=== PATIENT | male | born 1940 | race Caucasian/White ===

== ENCOUNTER 2016-10-13 17:22 | Emergency (ER) | payer OTHER ==
[2016-10-13 17:29] VITALS: TEMP 98.1; O2SAT 96
[2016-10-13] MEDS ORDERED: traMADol 50 MG TAB PO ONE (17:55)
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
--- NOTE | 2016-10-13 18:09 | CPEKG ---
Heart Rate: 55 RR Interval: 1091 P-R Interval: 320 QRSD Interval: 98 QT Interval: 428 QTC Interval: 410 P Oxford: 18 QRS Oxford: -16 T Wave Oxford: -2 EKG Severity - ABNORMAL ECG - EKG Impression: SINUS RHYTHM EKG Impression: FIRST DEGREE AV BLOCK EKG Impression: BORDERLINE LEFT AXIS DEVIATION Electronically Signed By: Le Edmonds 13-Oct-2016 22:31:01
[2016-10-13 18:46] VITALS: BP 169/92; PULSE 56; RESP 16
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
== END 2016-10-13 19:45 | disposition home or self-care (01) ==
DX: S06.0X0A Concussion without loss of consciousness, initial encounter (principal); S16.1XXA Strain of muscle, fascia and tendon at neck level, initial encounter; S39.012A Strain of muscle, fascia and tendon of lower back, initial encounter; S59.902A Unspecified injury of left elbow, initial encounter; S69.92XA Unspecified injury of left wrist, hand and finger(s), initial encounter; I10 Essential (primary) hypertension; Z79.82 Long term (current) use of aspirin; V46.5XXA Car driver injured in collision with other nonmotor vehicle in traffic accident, initial encounter; Y92.410 Unspecified street and highway as the place of occurrence of the external cause; Y99.8 Other external cause status; Y93.89 Activity, other specified

== ENCOUNTER → 2017-02-25 | Outpatient (CLI) | payer OTHER | LOC: BHFA 14:00 | PROVIDERS: ATTEND Internal Medicine Cardiovascular Disease | DX: I47.1 Supraventricular tachycardia (principal); I10 Essential (primary) hypertension ==

== ENCOUNTER → 2017-03-20 | Outpatient (CLI) | payer OTHER | LOC: BHFA 11:00 | PROVIDERS: ATTEND Internal Medicine Cardiovascular Disease | DX: I47.1 Supraventricular tachycardia (principal) ==

== ENCOUNTER 2017-08-14 08:58 | Inpatient (IN) | payer OTHER ==
[~2017-08-14 08:58] MED LIST: ROPIVACAINE 0.2% 80 MG, EPINEPHrine 0.2 MG, KETOROLAC TROMETHAMINE 30 MG in SYRINGE 0 ML IU ONE; TRANEXAMIC ACID 3,000 MG in NS 50 ML IRR ONE; TRANEXAMIC ACID 3,000 MG/50 ML BAG IRR ONE; VANCOMYCIN 1 GM VIAL ONE
[2017-08-14] MEDS ORDERED: ceFAZolin 2 GM/SWFI 2 GM/20 ML SYR IVP ONE (09:32)
[2017-08-14] MEDS ORDERED: FAMOTIDINE 20 MG TAB PO ONE (09:32)
[2017-08-14] MEDS ORDERED: DEXAMETHASONE 4 MG/ML VIAL IVP ONE (09:32)
[2017-08-14] MEDS ORDERED: ACETAMINOPHEN 325 MG TAB PO ONE (09:32)
[2017-08-14] MEDS ORDERED: LIDOCAINE 1% 2 ML INJ ID PRN (09:43)
[2017-08-14] MEDS ORDERED: LR 1,000 ML IV ONE (09:43)
--- NOTE | 2017-08-14 10:19 | PDHPUP ---
History & Physical Update H&P update statement: This history and physical update is based on an assessment of the patient which was completed after admission or registration (within 24 hours), but prior to the surgery/procedure. H&P update: H&P reviewed & patient examined, no change in patient's condition since H&P completed
[2017-08-14] MEDS ORDERED: BUPIVACAINE 0.5% 30 ML SDV ONE (10:56)
[2017-08-14] MEDS ORDERED: PROPOFOL/EMULSION 500 MG/50 ML BOTTLE IV ONE ×2 (10:57→11:50)
--- NOTE | 2017-08-14 11:25 | PDANEPAE ---
ANE History of Present Illness right knee OA ANE Past Medical History - Cardiovascular History Hx Hypertension: Yes Hx Arrhythmias: Yes Hx Chest Pain: No Hx Coronary Artery / Peripheral Vascular Disease: Yes Hx CHF / Valvular Disease: No Hx Palpitations: Yes Cardiovascular History Comment: htn. psvt. occ palpitations. cad. goes to [facility] - Pulmonary History Hx COPD: No Hx Asthma/Reactive Airway Disease: No Hx Recent Upper Respiratory Infection: No Hx Oxygen in Use at Home: No Hx Sleep Apnea: No Sleep Apnea Screening Result - Last Documented: Positive Pulmonary History Comment: traci triggers - Neurologic History Hx Cerebrovascular Accident: No Hx Seizures: No Hx Dementia: No - Endocrine History Hx Diabetes: No Obesity: no - Renal History Hx Renal Disorders: No - Liver History Hx Hepatic Disorders: No - Neurological & Psychiatric Hx Hx Neurological and Psychiatric Disorders: No - Cancer History Hx Cancer: No - Congenital Disorder History Hx Congenital Disorders: No - GI History GERD: no Hx Gastrointestinal Disorders: No - Other Health History Other Health History: wear reading glasses - Chronic Pain History Chronic Pain: Yes (right knee) - Surgical History Prior Surgeries: right knee scope ANE Review of Systems Review of Systems: - Exercise capacity METS (RN): 4 METS ANE Patient History - Allergies Allergies/Adverse Reactions: No Known Allergies Allergy (Verified 07/08/17 12:57) - Home Medications Home medications: home medication list seen and reviewed Home Medications: Flecainide Acetate [Tambocor] 100 mg PO BID 10/13/16 [Last Taken 08/14/17] Ibuprofen [Motrin (*)] 200 mg PO DAILY PRN 07/01/17 [Last Taken 08/04/17] Lisinopril [Zestril 10 mg (*)] 10 mg PO DAILY 07/01/17 [Last Taken 08/14/17] Multivitamins [Multivitamin (*)] 1 each PO DAILY 07/01/17 [Last Taken 07/31/17] - NPO status NPO Since - Liquids (Date): 08/14/17 NPO Since - Liquids (Time): 07:30 NPO Since - Solids (Date): 08/13/17 NPO Since - Solids (Time): 19:30 - Anes Hx Anes Hx: no prior problems - Smoking Hx Smoking Status: Never smoked - Family Anes Hx Family Hx Anesthesia Complications: none ANE Labs/Vital Signs - Vital Signs Blood Pressure: 160/91 Heart Rate: 64 Respiratory Rate: 18 O2 Sat (%): 94 Height: 182.88 cm Weight: 90.718 kg ANE Physical Exam - Airway Neck exam: FROM Mallampati Score: Class 1 Mouth exam: normal dental/mouth exam - Pulmonary Pulmonary: no respiratory distress - Cardiovascular Cardiovascular: regular rate and rhythym - ASA Status ASA Status: III ANE Anesthesia Plan Anesthesia Plan: spinal Regional Anesthesia: single shot NB, adductor canal FNB Urgent/Emergent Case: Gerard joseph completed preop but documented later for safe timely pt care
--- NOTE | 2017-08-14 11:25 | POSTANESTH ---
Post Anesthetic Evaluation Cardiovascular Status: Normal, Stable Respiratory Status: Normal, Stable Level of Consciousness/Mental Status: Can Participate in Eval Pain Control: Adequate, Prn Tx Ordered Nausea/Vomiting Control: Adequate, Prn Tx Ordered Complications Possibly Related to Anesthesia: None Noted
[2017-08-14] MEDS ORDERED: LIDOCAINE 2% 5 ML SDV ONE (11:50)
[2017-08-14] MEDS ORDERED: CYCLOBENZAPRINE 10 MG TAB PO PRN (12:35)
[2017-08-14] MEDS ORDERED: ONDANSETRON DISINTEGRATING 4 MG TAB PO PRN (12:35)
[2017-08-14] MEDS ORDERED: LACTULOSE 20 GM/30 ML UDCUP PO PRN (12:35)
[2017-08-14] MEDS ORDERED: ONDANSETRON 4 MG/2 ML VIAL IVP PRN ×2 (12:35→13:12)
[2017-08-14] MEDS ORDERED: METOCLOPRAMIDE 10 MG/2 ML VIAL IVP PRN (12:35)
[2017-08-14] MEDS ORDERED: MAGNESIUM HYDROXIDE 30 ML UDCUP PO PRN (12:35)
[2017-08-14] MEDS ORDERED: HYDROmorphONE/DILAUDID 2 MG TAB PO PRN (12:35)
[2017-08-14] MEDS ORDERED: BISACODYL 10 MG SUPP PR PRN (12:35)
[2017-08-14] MEDS ORDERED: diphenhydrAMINE 25 MG CAP PO PRN (12:35)
[2017-08-14] MEDS ORDERED: PROMETHAZINE HCL 25 MG/ML INJ IVP PRN (12:35)
[2017-08-14] MEDS ORDERED: TEMAZEPAM 15 MG CAP PO PRN (12:35)
[2017-08-14] MEDS ORDERED: DIPHENOXYLATE/ATROPINE LOMOTIL 1 TAB PO PRN (12:35)
[2017-08-14] MEDS ORDERED: PROMETHAZINE HCL 25 MG SUPPR PR PRN (12:35)
[2017-08-14] MEDS ORDERED: POLYETHYLENE GLYCOL 3350 17 GM PKT PO PRN (12:35)
--- NOTE | 2017-08-14 12:35 | POSTOPPROG ---
Post Op Note Date of Operation: 08/14/17 Surgeon: Ash Miller [employer] Dean: hemanth miller Anesthesiologist: dr. bender Anesthesia: Spinal, Other (Specify) (adductor canal block) Pre-op Diagnosis: right knee OA Post-op Diagnosis: same Indication: right knee pain due to OA that failed conservative measures Procedure: R TKA Findings: severe kneeOA Inf/Abcess present in the surg proc area at time of surgery?: No EBL: 50-100
[2017-08-14] MEDS ORDERED: ACETAMINOPHEN 325 MG TAB ONE (13:11)
[2017-08-14] MEDS ORDERED: ALBUTEROL 3 ML DEYVIAL IH PRN (13:12)
[2017-08-14] MEDS ORDERED: HYDROmorphONE/DILAUDID 1 MG/ML INJ IVP PRN (13:12)
[2017-08-14] MEDS ORDERED: OXYCODONE/APAP 5/325 TAB PO PRN (13:12)
[2017-08-14] MEDS ORDERED: fentaNYL 100 MCG/2 ML INJ IVP PRN (13:12)
[2017-08-14] MEDS ORDERED: ACETAMINOPHEN 500 MG TAB PO PRN (13:12)
[2017-08-14] MEDS ORDERED: HYDROCODONE/APAP 5/325 TAB PO PRN (13:12)
[2017-08-14] MEDS ORDERED: NALOXONE HCL 0.4 MG/ML INJ IVP PRN (13:12)
[2017-08-14] MEDS ORDERED: LR 500 ML IV PRN (13:12)
[2017-08-14] MEDS: LR 1,000 ML IV SCH (15:45)
[2017-08-14] MEDS: ceFAZolin 2 GM/DEXTROSE 100 ML IV SCH ×3 (16:14→18:08)
[2017-08-14] MEDS: ACETAMINOPHEN 325 MG TAB PO SCH (18:08)
[2017-08-14] MEDS ORDERED: ASPIRIN 325 MG TAB PO SCH (21:00)
[2017-08-14] MEDS: FAMOTIDINE 20 MG TAB PO SCH (21:17)
[2017-08-14] MEDS: ASPIRIN EC 81 MG TAB PO SCH (21:17)
[2017-08-14] MEDS: FLECAINIDE ACETATE 100 MG TAB PO SCH (21:17)
[2017-08-14] MEDS: SENNOSIDES/DOCUSATE SODIUM TAB PO SCH (21:17)
[2017-08-15] MEDS: ACETAMINOPHEN 325 MG TAB PO SCH ×3 (00:38→11:42)
[2017-08-15] MEDS: LR 1,000 ML IV SCH (00:38)
[2017-08-15] MEDS: ceFAZolin 2 GM/DEXTROSE 100 ML IV SCH (03:33)
[2017-08-15 04:36] LABS: HEMATOCRIT 37.2 % (40.0-51.0); HEMOGLOBIN 12.8 g/dL (13.7-17.5)
[2017-08-15 04:38] VITALS: RESP 17; TEMP 98.1; O2SAT 95
[2017-08-15] MEDS ORDERED: LISINOPRIL 10 MG TAB PO SCH (09:00)
[2017-08-15 09:39] VITALS: PULSE 62
[2017-08-15] MEDS: FLECAINIDE ACETATE 100 MG TAB PO SCH (09:40)
[2017-08-15] MEDS: FAMOTIDINE 20 MG TAB PO SCH (09:41)
[2017-08-15] MEDS: ASPIRIN EC 81 MG TAB PO SCH (09:41)
[2017-08-15] MEDS: SENNOSIDES/DOCUSATE SODIUM TAB PO SCH (09:43)
[2017-08-15 09:45] VITALS: BP 161/88
--- NOTE | 2017-08-15 09:49 | SOAPPROG ---
SOAP Progress Note Assessment/Plan: Assessment: Art is doing well today POD 1 s/p R TKA 1) pain management: pain is well controlled on oral pain management 2) VTE ppx: recommend aspirin 81 mg BID 3) Anemia: level expected initially postop 4) d/c planning: d/c to home pending release from PT Plan: 08/15/17 09:48 Subjective: Art is doing well today, denies SOB, chest pain and N/V. Objective: Vital Signs Temp Pulse Resp BP Pulse Ox 36.7 C 62 17 161/88 H 95 08/15/17 06:51 08/15/17 08:00 08/15/17 06:51 08/15/17 09:41 08/15/17 06:51 Laboratory Results 08/15/17 04:12 08/14/17 08/15/17 08/16/17 05:59 05:59 05:59 Intake Total 3502 Output Total 1380 Balance 2122 RLE: incision dressing is clean and dry, NVI< +pf/df ICD10 Worksheet Patient Problems: Problems Problem Status Onset Primary localized osteoarthritis of right knee Acute
--- NOTE | 2017-08-15 12:00 | ASDISCHSUM ---
Discharge Information Plan Status:Home with No Needs Medically Cleared to Leave: Discharge Date:08/15/2017 11:53 AM CM D/C Disposition:Home, Routine, Self-Care ADT D/C Disposition:Home, Routine, Self-Care Projected Discharge Date:08/15/2017 11:53 AM Transportation at D/C: Discharge Delay Reason: Follow-Up Date:08/15/2017 11:53 AM Discharge Slot: Final Diagnosis: Placement Information Patient Contact Information Contact Name:RAMIRO Relationship: Address:[address] Work Phone: [place] Alternate Phone: [facility]/[place] Code:[place] [address] Email: Financial Information Financial Class:MC Primary Plan Desc:MEDICARE INPATIENT Primary Plan Number:[id number] Secondary Plan Desc:LEONOR ISLASO POS HMO SIG ADM Secondary Plan Number:[id number] Assessment Information Intervention Information
--- NOTE | 2017-08-16 10:57 | GDS ---
[f rep st] DISCHARGE SUMMARY ADMISSION DIAGNOSIS: Right knee osteoarthritis. DISCHARGE DIAGNOSIS: Right knee osteoarthritis. PROCEDURE: Right total knee arthroplasty. VTE PROPHYLAXIS: Recommend aspirin 81 mg twice daily for 4 weeks BRIEF DESCRIPTION OF HOSPITAL STAY: Patient was admitted for an elective joint arthroplasty. The pa kenzie tolerated the procedure well and has passed physical therapy. The patient was given appropriat e antibiotic prophylaxis and venous thromboembolism prophylaxis. The patient's pain was well control led on oral pain medication, patient was holding down food, and had urinated. Decision was made to d ischarge the patient. The patient was given post-operative prescriptions pre-operatively. PLAN: To follow up with at Dr. Aleman's office, 09/10 at 9:45 a.m. /[id number]/MODL
--- NOTE | 2017-08-17 21:43 | GOP ---
[f rep st] OPERATIVE REPORT DATE OF OPERATION: 08/14/2017 SURGEON: Yusra Aleman MD LOAN DOCUMENTS CLOSER: RADHA Brooks ANESTHESIA: Spinal. PREOPERATIVE DIAGNOSIS: Right knee osteoarthritis. POSTOPERATIVE DIAGNOSIS: Right knee osteoarthritis. PROCEDURE PERFORMED: Right total knee arthroplasty. FINDINGS/PATHOLOGY: Severe tricompartmental osteoarthritis. ESTIMATED BLOOD LOSS: 30 cc. INDICATIONS: This is a 76-year-old male with severe and progressive pain and deformity of the right knee unresponsive to conservative care. Risks and benefits of the surgical intervention were explained in detail. DESCRIPTION OF PROCEDURE: The patient was brought to the operative room and placed on the table in the supine position. Spinal anesthesia was induced without difficulty. A pneumatic tourniquet was applied about the right proximal thigh, and the leg was prepped and draped in a sterile fashion. The leg schwartz was applied. After exsanguination by elevation the tourniquet was inflated to 250 mm of mercury. Incision was made anterior medial from the tibial tuberosity to a point 2 cm proximal to the superior pole of the patella. Medial parapatellar arthrotomy was carried out from the superior pole of the patella and posteriorly in line with the fibers of the Type 2 VMO. The medial collateral ligament was elevated and the infrapatellar fat pad was resected. The patella was everted and the articular surface was excised. A 40 mm patellar button was placed. The distal femoral guide hole was drilled and the 6- degree alignment benito was placed. A 10 mm distal femoral cut was made without difficulty. Attention was turned to the tibia and a standard 9 mm cut based on the lateral tibial condyle was performed. The tibial articular surface was excised without difficulty. Attention was turned back to the femur and a size 7 femoral cutting block was positioned. Anterior, posterior, and chamfer cuts were made, followed by the intercondylar box cut. The knee was extended and the remnants of the medial and lateral meniscus were excised. The posterior capsule was injected with ropivacaine, epinephrine and Toradol. A size 8 MIS mini-keel tibial tray was positioned. Trial reduction was then carried out. There was excellent range of motion, alignment, and stability using the 9 mm polyethylene. All trials were then removed. The joint was thoroughly irrigated and carefully dried. Two packages of cement and 2 grams of vancomycin were mixed in the vacuum mixer and placed on the fixation surfaces of all surfaces of the components. The components were implanted and all excess cement was thoroughly removed. The permanent 9 mm polyethylene X3 was placed without difficulty. The tourniquet was deflated and all bleeders were coagulated. The wound was thoroughly irrigated and closed using interrupted sutures of 2-0 Vicryl for the joint capsule. The subcu was closed with 3-0 Vicryl and the skin with 4-0 Monocryl. Dermabond and Steri-Strips were applied followed by a compressive dressing. The patient was then moved from the operating room to the recovery room in good condition, having tolerated the procedure well. /[id number]/MODL MTDD
== END 2017-08-15 11:53 | disposition home or self-care (01) | DRG 470 ==
LOC: F3N 08:58
PROVIDERS: ADMIT Orthopaedic Surgery; ATTEND Orthopaedic Surgery
PROC: 0SRC0J9 Replacement of Right Knee Joint with Synthetic Substitute, Cemented, Open Approach (ICD-10-PCS; principal; 2017-08-14 11:15)
DX: M17.11 Unilateral primary osteoarthritis, right knee (principal); I10 Essential (primary) hypertension; I47.1 Supraventricular tachycardia; I25.10 Atherosclerotic heart disease of native coronary artery without angina pectoris; I48.91 Unspecified atrial fibrillation; E78.5 Hyperlipidemia, unspecified
CPT/HCPCS: 97116-GP; 97161-GP; 97165-GO; C1713; G8978-GP-CI; G8979-GP-CI; G8980-GP-CI; G8987-GO-CI; G8988-GO-CI; G8989-GO-CI; J0171; J0690; J1100; J1885; J2704; J2795; J3370

== ENCOUNTER 2018-07-01 18:04 | Emergency (ER) | payer OTHER ==
--- NOTE | 2018-07-01 18:14 | EDPHY ---
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 Patient reports that he has a splinter that is deep inside the tip of his left index finger. He reports that the pain is moderate and constant in nature.. Unsure of last tetanus booster. Denies radiation, weakness, paresthesias, decreased range of motion. Modifying Factors: None Comment: ROS: A comprehensive 10 system review of systems is otherwise negative aside from elements mentioned in the history of present illness. MEDICAL/SURGICAL/SOCIAL HISTORY: Medical history: Hypercholesteremia, hypertension, tachycardia Surgical history: Denies Social history: Nonsmoker. Employed. CONSTITUTIONAL: Polite and cooperative elderly white male, awake and alert, no obvious distress HEENT: Atraumatic and normocephalic. NECK: supple EXTREMITIES: 2/2 pulses, strength 5/5, left index finger shows entry point in the lateral aspect and exit point in the mid finger pad; no active bleeding; tender to palpation; no nail involvement. DIP/PIP/MCP flexion/extension intact with good light touch sensation. no deformities, no clubbing, no cyanosis or edema. NEUROLOGICAL: no focal neuro deficits. GCS 15. Light touch sensation intact. SKIN: Warm and dry, no erythema. no rash. Good capillary refill. Source: Patient Exam Limitations: No limitations - Personal History Current Tetanus Diphtheria and Acellular Pertussis (TDAP): Unsure - Medical/Surgical History Hx Asthma: No Hx Chronic Respiratory Disease: No Hx Diabetes: No Hx Cardiac Disease: Yes Hx Renal Disease: No Hx Cirrhosis: No Hx Alcoholism: No Hx HIV/AIDS: No Hx Splenectomy or Spleen Trauma: No Other PMH: cholesterol. HTN. tachycardia - Social History Smoking Status: Never smoked Constitutional: Initial Vital Signs Temperature (C) 36.7 C 07/01/18 18:08 Heart Rate 76 07/01/18 18:08 Respiratory Rate 18 07/01/18 18:08 Blood Pressure 200/81 H 07/01/18 18:08 O2 Sat (%) 95 07/01/18 18:08 O2 Delivery Mode Room Air Allergies/Adverse Reactions: No Known Allergies Allergy (Verified 07/01/18 18:05) Home Medications: Medication Instructions Recorded Flecainide Acetate [Tambocor] 100 mg PO BID 10/13/16 Lisinopril [Zestril 10 mg (*)] 10 mg PO DAILY 07/01/17 Aspirin EC [Aspirin EC 81 mg (*)] 81 mg PO BID tab 08/15/17 Cephalexin [Keflex (*)] 500 mg PO TID #21 cap 07/01/18 Medical Decision Making Procedures: Procedure: Foreign body removal from left index finger. Anesthesia: 2 cc of 1% lidocaine without epinephrine After verbal consent was obtained, the splinter was removed from tip of the left index finger. The foreign body was removed manually with forceps under direct visualization. There were no complications. The procedure was performed by myself. ED Course/Re-evaluation: Elevated blood pressure noted upon arrival likely secondary to pain. Tetanus booster and Keflex given Local anesthesia provided; splinter removed intact using forceps under direct visualization. Full range of motion of DIP/PIP/MCP joints and splinter removed in entirety- no imaging indicated. Soaked and half solution of Betadine and normal saline for 30 min and irrigated copiously. Will be placed on Keflex for antibiotic prophylaxis. Bacitracin clean sterile dressing applied. At discharge patient requesting influenza vaccine. Influenza vaccine ordered and given. No signs of neurovascular compromise/tenting of skin/compartment syndrome/ extremities and joints examined above and below area of concern and are neurovascularly intact. This patient was seen under the supervision of my secondary supervising physician. I evaluated care for this patient independently. Discussed this patient with Dr. Lopez. Differential Diagnosis: Differential diagnosis includes but is not limited to foreign body, cellulitis, tenosynovitis. - Data Points Medications Given: Discontinued Medications Cephalexin HCl (Keflex) 500 mg PO EDNOW ONE PRN Reason: Protocol Stop: 07/01/18 18:24 Last Admin: 07/01/18 18:31 Dose: 500 mg Diphtheria/Tetanus/Acell Pertussis (Boostrix) 0.5 ml IM .ONCE ONE Stop: 07/01/18 18:24 Last Admin: 07/01/18 18:30 Dose: 0.5 ml Influenza Virus Vaccine Quadrival (Flulaval Quad [id number] (6mo+)) 0.5 ml IM .ONCE ONE Stop: 07/01/18 19:01 Last Admin: 07/01/18 18:45 Dose: 0.5 ml Departure - Departure Disposition: Home, Routine, Self-Care Clinical Impression: Laceration of left index finger with foreign body w/o damage to nail Qualifiers: Encounter type: initial encounter Qualified Code(s): S61.221A - Laceration with foreign body of left index finger without damage to nail, initial encounter Condition: Good Instructions: Soft Tissue Foreign Body (ED) Additional Instructions: Keep the dressing dry and in place for 48 hours. After 48 hours, you may remove the dressing; wash the site daily with mild soap and water; then pat dry. Apply topical antibiotic ointment and clean sterile dressing daily until fully healed. Take Tylenol 650 mg every 4 hours and/or Ibuprofen 600 mg every 8 hours with food as needed for pain. Take antibiotic as directed. Do not skip a dose. Monitor for signs and symptoms of infection. Return to the ER immediately if you experience redness, red streaks, have fevers /chills, flu like symptoms, limited range of motion, or any other symptoms that concern you. Referrals: Kristen Garcia MD [Primary Care Provider] - 5-7 days, if not improved Prescriptions: Cephalexin [Keflex (*)] 500 mg PO TID #21 cap
[2018-07-01] MEDS ORDERED: CEPHALEXIN 500 MG CAP PO ONE (18:23)
[2018-07-01] MEDS ORDERED: TDAP ADULT 0.5 ML INJ (BOOSTRIX) IM ONE (18:23)
[2018-07-01 19:17] VITALS: BP 150/84
== END 2018-07-01 19:11 | disposition home or self-care (01) ==
DX: S60.451A Superficial foreign body of left index finger, initial encounter (principal); Y93.E9 Activity, other interior property and clothing maintenance; I10 Essential (primary) hypertension; E78.5 Hyperlipidemia, unspecified; Z23 Encounter for immunization

== ENCOUNTER → 2018-09-28 | Outpatient (CLI) | payer OTHER | LOC: FIMAGING 10:40 | PROVIDERS: ATTEND Internal Medicine | DX: S22.41XA Multiple fractures of ribs, right side, initial encounter for closed fracture (principal) ==

== ENCOUNTER → 2018-12-30 | Outpatient (CLI) | payer OTHER | LOC: BHFA 13:30 | PROVIDERS: ATTEND Internal Medicine Cardiovascular Disease | DX: I25.10 Atherosclerotic heart disease of native coronary artery without angina pectoris (principal); I47.1 Supraventricular tachycardia; I10 Essential (primary) hypertension ==

== ENCOUNTER → 2019-01-11 | Outpatient (CLI) | payer OTHER | LOC: BHFA 08:30 | PROVIDERS: ATTEND Internal Medicine Cardiovascular Disease | DX: R07.9 Chest pain, unspecified (principal); I25.10 Atherosclerotic heart disease of native coronary artery without angina pectoris; R00.0 Tachycardia, unspecified | CPT/HCPCS: 78452; 93017; A9500 ==